=== PATIENT | male | born 1940 | race Caucasian/White ===

== ENCOUNTER 2017-02-21 10:17 | Emergency (ER) | payer MEDICARE, OTHER ==
[2017-02-21] MEDS ORDERED: Sodium Chloride 0.9% 10 ML Syringe FLUSH PRN (10:30)
--- NOTE | 2017-02-21 10:39 | EDM.PDOC ---
ED HPI GENERAL MEDICAL PROBLEM - General Chief Complaint: Lower Extremity Injury/Pain Stated Complaint: [id number] FELL LAST MONDAY AND UTI Time Seen by Provider: 02/21/17 10:25 Source of Information: Reports: Patient, Family, RN, RN Notes Reviewed History Limitations: Reports: Language Barrier, Physical Impairment - History of Present Illness INITIAL COMMENTS - FREE TEXT/NARRATIVE: Pt brought to ER by his . She states she found the patient in the garage on the floor on when she came home from work. She states she does not believe he was there for very long, as he was not cold. She states he did not hit his head or lose consciousness. 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 states he was able to ambulate some, but is unable to bear weight now. She also states that he has been urinating much more frequently than normal for the past few days. denies fever, chills, N/V/D, chest pain, or sob. Onset: Gradual Onset Date: 02/16/17 Location: Reports: Lower Extremity, Left - Related Data Allergies Allergy/AdvReac Type Severity Reaction Status Date / Time candesartan cilexetil Allergy Diarrhea Verified 02/21/17 10:42 [From Atacand] hydralazine [Hydralazine] Allergy Dizziness Verified 02/21/17 10:42 sulfamethoxazole Allergy Swelling Verified 02/21/17 10:42 [From Bactrim] trimethoprim [From Bactrim] Allergy Swelling Verified 02/21/17 10:42 Home Meds: Home Meds Aspirin [Arnold Chewable] 81 mg PO DAILY 12/18/13 [History] Doxazosin Mesylate [Cardura] 8 mg PO BEDTIME 12/18/13 [History] Fish Oil/[place]-3 Fatty Acids [Fish Oil] 1,000 mg PO DAILY 12/18/13 [History] Garlic 1,000 mg PO DAILY 12/18/13 [History] Mirtazapine [Mirtazapine] 30 mg PO BEDTIME 12/18/13 [History] Multivitamin [Multivitamins] 1 tab PO ASDIRECTED 12/18/13 [History] Nitroglycerin 0.4 mg SL 12/18/13 [History] Simvastatin [Simvastatin] 5 mg PO DAILY 12/18/13 [History] amLODIPine [Norvasc] 10 mg PO DAILY 12/18/13 [History] Calcitriol 0.25 mcg PO ASDIRECTED 02/21/17 [History] Isosorbide Mononitrate [Imdur] 60 mg PO DAILY 02/21/17 [History] Loratadine 10 mg PO DAILY 02/21/17 [History] Lutein/Minerals/Vit A,C & E [Ocuvite] 1 tab PO ASDIRECTED 02/21/17 [History] Social & Family History - Tobacco Use Smoking Status *Q: Former Smoker Years of Tobacco use: 10 Used Tobacco, but Quit: No Second Hand Smoke Exposure: No - Alcohol Use Days Per Week of Alcohol Use: 0 - Recreational Drug Use Recreational Drug Use: No Review of Systems - Review of Systems Review Of Systems: ROS reveals no pertinent complaints other than HPI. ED EXAM, GENERAL - Physical Exam Exam: See Below Exam Limited By: Language Barrier General Appearance: Alert, WD/WN, No Apparent Distress Eye Exam: Bilateral Eye: Normal Inspection Ears: Normal External Exam, Hearing Grossly Normal Nose: Normal Inspection Throat/Mouth: Normal Inspection, No Airway Compromise Head: Atraumatic, Normocephalic, Other (hx TBI 39 years ago) Neck: Normal Inspection, Supple, Non-Tender, Full Range of Motion Respiratory/Chest: No Respiratory Distress, Lungs Clear, No Accessory Muscle Use , Chest Non-Tender, Decreased Breath Sounds Cardiovascular: Normal Peripheral Pulses, Regular Rate, Rhythm, No Edema, No Gallop, No JVD, No Murmur, No Rub Peripheral Pulses: 2+: Radial (L), Radial (R) GI/Abdominal: Normal Bowel Sounds, Soft, Non-Tender, No Organomegaly, No Distention, No Abnormal Bruit, No Mass (Male) Exam: Deferred Rectal (Males) Exam: Deferred Back Exam: Normal Inspection, Full Range of Motion Extremities: Normal Inspection, Normal Range of Motion, Non-Tender, No Pedal Edema, Normal Capillary Refill Neurological: Alert, Oriented, Slow to Respond, Abnormal Gait, Other (aphasic due to TBI) Psychiatric: Normal Affect, Normal Mood Skin Exam: Warm, Dry, Intact, Normal Color, No Rash Lymphatic: No Adenopathy Course - Vital Signs Last Recorded V/S: Last Vital Signs Temp 98.4 F 02/21/17 10:25 Pulse 66 02/21/17 10:25 Resp 16 02/21/17 10:25 BP 160/84 H 02/21/17 10:25 Pulse Ox 97 02/21/17 10:25 - Orders/Labs/Meds Orders: Active Orders 24 hr Category Date Time Status Peripheral IV Care [RC] . DIRECTED Care 02/21/17 10:30 Active Sodium Chloride 0.9% [Saline Flush] Med 02/21/17 10:30 Active 10 ml FLUSH ASDIRECTED PRN Peripheral IV Insertion Adult [OM.PC] Stat Oth 02/21/17 10:30 Ordered Medication Orders Sodium Chloride (Saline Flush) 10 ml FLUSH ASDIRECTED PRN PRN Reason: Keep Vein Open Labs: Laboratory Tests 02/21/17 02/21/17 02/21/17 Range/Units 10:25 10:39 10:39 WBC 10.7 H (5.0-10.0) 10^3/uL RBC 4.00 L (4.6-6.2) 10^6/uL Hgb 12.2 L (14.0-18.0) g/dL Hct 35.2 L (40.0-54.0) % MCV 88.0 (80-100) fL MCH 30.5 (27.0-34.0) pg MCHC 34.7 (33.0-35.0) g/dL Plt Count 281 (150-450) 10^3/uL Neut % (Auto) 81.4 H (42.2-75.2) % Lymph % (Auto) 9.6 L (20.5-50.1) % [place] % (Auto) 8.3 H (2-8) % Eos % (Auto) 0.4 L (1.0-3.0) % Baso % (Auto) 0.3 (0.0-1.0) % Sodium 128 L (135-145) mmol/L Potassium 3.6 (3.6-5.0) mmol/L Chloride 92 L (101-111) mmol/L Carbon Dioxide 22.0 (21.0-31.0) mmol/L Anion Gap 17.6 BUN 40 H (7-18) mg/dL Creatinine 3.1 H (0.6-1.3) mg/dL Est Cr Clr Drug Dosing 19.00 mL/min Estimated GFR (MDRD) 20 BUN/Creatinine Ratio 12.90 Glucose 127 H (74-105) mg/dL Calcium 9.8 (8.4-10.2) mg/dl Total Bilirubin 0.6 (0.2-1.0) mg/dL AST 25 (10-42) IU/L ALT 17 (10-60) IU/L Alkaline Phosphatase 56 (42-121) IU/L Total Protein 7.8 (6.7-8.2) g/dl Albumin 3.7 (3.2-5.5) g/dl Globulin 4.1 Albumin/Globulin Ratio 0.90 Urine Color Yellow (YELLOW) Urine Appearance Clear (CLEAR) Urine pH 5.0 (5.0-9.0) Ur Specific [place] 1.015 (1.005-1.030) Urine Protein >=300 H (NEGATIVE) Urine Glucose (UA) Negative (NEGATIVE) Urine Ketones Negative (NEGATIVE) Urine Occult Blood Trace-lysed H (NEGATIVE) Urine Nitrite Negative (NEGATIVE) Urine Bilirubin Negative (NEGATIVE) Urine Urobilinogen 0.2 (0.2-1.0) mg/dL Ur Leukocyte Esterase Negative (NEGATIVE) Urine RBC 0-5 /HPF Urine WBC 0-5 (0-5/HPF) /HPF Ur Epithelial Cells Not seen /HPF Urine Bacteria Rare (0-FEW/HPF) /HPF Meds: Medications Generic Name Dose Route Start Last Admin Trade Name Freq PRN Reason Stop Dose Admin Sodium Chloride 10 ml 02/21/17 10:30 Saline Flush FLUSH ASDIRECTED PRN Keep Vein Open Discontinued Medications Generic Name Dose Route Start Last Admin Trade Name Freq PRN Reason Stop Dose Admin Acetaminophen 650 mg 02/21/17 11:00 02/21/17 11:27 Tylenol PO 02/21/17 11:01 650 mg NOW ONE Administration - Radiology Interpretation Free Text/Narrative:: Left hip/pelvis xray: mildly impacted, subacute, subcapital "fracture of the proximal left femur) Left knee xray: No acute findings See rad report - Re-Assessments/Exams Free Text/Narrative Re-Assessment/Exam: 02/21/17 12:[address] Tian at . Patient will be transferred to in [place] for admission. Departure - Departure Time of Disposition: 12:21 Disposition: Home, Self-Care 01 Condition: Fair Clinical Impression: Fracture of neck of femur, hip - Discharge Information Forms: ED Department Discharge, Interfacility Transfer EMTSANA - My Orders Last 24 Hours: My Active Orders 02/21/17 10:30 Peripheral IV Care [RC] . DIRECTED Sodium Chloride 0.9% [Saline Flush] 10 ml FLUSH ASDIRECTED PRN Peripheral IV Insertion Adult [OM.PC] Stat - Assessment/Plan Last 24 Hours: My Active Orders 02/21/17 10:30 Peripheral IV Care [RC] . DIRECTED Sodium Chloride 0.9% [Saline Flush] 10 ml FLUSH ASDIRECTED PRN Peripheral IV Insertion Adult [OM.PC] Stat
[2017-02-21] MEDS ORDERED: Acetaminophen 325 MG Tab PO ONE (11:00)
--- NOTE | 2017-02-21 11:26 | CR ---
Clinical history: 76-year-old male left hip pain (fall on 15 February 2017). Interpretation: AP pelvis/hips and AP/crosstable lateral view of the left hip confirm mildly impacted, subacute, subc apital *fracture of the proximal left femur (anatomic alignment). Symmetric spacing normal-appearing SI and hip joints without arthritic degenerative change. Arteriova scular calcifications soft tissues. No sign of other pelvic or contralateral right hip fracture/dislo cation. No foreign bodies.
--- NOTE | 2017-02-21 11:27 | CR ---
Clinical history: 69-year-old male fractured left hip first of February complaining of pain (history patellar fracture on the left). Interpretation: AP, lateral left knee reveal evidence of old healed patellar fracture. No sign of suprapatellar bursal effusion, acute left knee fracture, dislocation or radiopaque loose j oint body. 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
== END 2017-02-21 12:55 ==
LOC: DL.ED 10:17
DX: S72.012A Unspecified intracapsular fracture of left femur, initial encounter for closed fracture (principal); Z88.2 Allergy status to sulfonamides; Z88.8 Allergy status to other drugs, medicaments and biological substances; Z87.891 Personal history of nicotine dependence; Z79.899 Other long term (current) drug therapy; W19.XXXA Unspecified fall, initial encounter
CPT/HCPCS: 36415; 73502; 73560; 80053; 81001; 85025; 99284; A9270

== ENCOUNTER 2018-08-13 06:23 | Day surgery (SDC) | payer MEDICARE, OTHER ==
[~2018-08-13 06:23] MED LIST: Dextrose 5%-0.45% NaCl 1,000 ML IV SCH; Midazolam 1 MG/ML 2 ML SDV ONE; Sodium Chloride 0.9% 10 ML Syringe FLUSH PRN; fentaNYL 100 MCG/2 ML SDV ONE
[2018-08-13] MEDS ORDERED: fentaNYL 100 MCG/2 ML SDV IV ONE ×3 (06:24→07:07)
[2018-08-13] MEDS ORDERED: Midazolam 1 MG/ML 2 ML SDV IV ONE ×4 (06:24→07:12)
--- NOTE | 2018-08-13 14:01 | OR ---
DATE: 08/13/2018 PROCEDURE PERFORMED: Total colonoscopy. INSTRUMENT USED: [id number] Olympus video colonoscope. PREMEDICATIONS: Fentanyl 100 mcg intravenous, Versed 2.5 mg intravenous. Nasal O2 cannula. The procedure was done under pulse oximetry, BP recording, and quality assurance monitor body. INDICATION: The patient with progress of constipation unexplained and not responsive to medical measures. Colonoscopic examination is done for detection of any polypoid lesions and removal, endoscopic hemostasis therapy if needed. DESCRIPTION OF PROCEDURE: Initial rectal exam showed external hemorrhoidal tags. Rigid anoscopy was normal. The colonoscope was passed with ease. Numerous scattered diverticula were noted in the distal left colon along with deformity. The scope was passed with ease up to the ileocecal area. Photographs were taken of the cecum, identified by double-bulged ileocecal folds. No bleeding was noted from any of the visualized areas at the commencement of the examination. The bowel preparation was found to be adequate, [place] scale 2. No stricture, no vascular ectasia. No large isolated ulcerations seen. No evidence of diffuse inflammatory bowel disease in the form of friability, contact bleeding, or ulcerations. No polyp or tumor mass identified. Probing the proximal sides of folds and flexures using adequate distention and clearing up the stool material, withdrawal of the scope was made, cecum to rectum, time over 6 minutes. No bleeding was noted from any of the visualized areas at the completion of examination. IMPRESSION: 1. External hemorrhoids. 2. Diverticulosis. The patient tolerated the procedure well. [facility] /[id number]
== END 2018-08-13 09:56 | disposition home or self-care (01) ==
LOC: DL.ENDO 06:23
PROVIDERS: ATTEND Internal Medicine Gastroenterology
DX: K57.30 Diverticulosis of large intestine without perforation or abscess without bleeding (principal); K64.4 Residual hemorrhoidal skin tags; I25.10 Atherosclerotic heart disease of native coronary artery without angina pectoris; I12.9 Hypertensive chronic kidney disease with stage 1 through stage 4 chronic kidney disease, or unspecified chronic kidney disease; N18.4 Chronic kidney disease, stage 4 (severe); N40.0 Benign prostatic hyperplasia without lower urinary tract symptoms; E78.5 Hyperlipidemia, unspecified; F17.210 Nicotine dependence, cigarettes, uncomplicated; Z79.82 Long term (current) use of aspirin; Z79.899 Other long term (current) drug therapy; Z88.8 Allergy status to other drugs, medicaments and biological substances
CPT/HCPCS: 45378; J2250; J3010; J7042